=== PATIENT | male | born 2000 | race Caucasian/White ===

== ENCOUNTER 2021-09-17 16:32 | Emergency (ER) | payer OTHER ==
[2021-09-17 18:44] LABS: HEMOGLOBIN 13.7 gm/dl (14.0-17.5); RED BLOOD COUNT 4.58 M/UL (4.20-5.50); WHITE BLOOD COUNT 19.3 K/UL (4.5-11.0)
[2021-09-17 18:52] LABS: BUN/CREATININE RATIO 16 (0-10)
== END 2021-09-18 14:50 | disposition left against medical advice (07) ==
LOC: ER1 16:32
PROVIDERS: Physician Assistant
DX: R56.9 Unspecified convulsions (principal); S00.81XA Abrasion of other part of head, initial encounter; F17.210 Nicotine dependence, cigarettes, uncomplicated; Z86.73 Personal history of transient ischemic attack (TIA), and cerebral infarction without residual deficits; X58.XXXA Exposure to other specified factors, initial encounter
CPT/HCPCS: 70450; 71045; 72125; 80053; 82550; 82553; 84439; 84443; 84484; 85025; 93005; 96374; 96375; 99283; J1953